=== PATIENT | female | born 1935 | race Caucasian/White ===

== ENCOUNTER 2017-03-26 22:23 | Inpatient (IN) | payer OTHER ==
[~2017-03-26] VITALS: Ht 157.5 cm; Wt 51.7 kg
[2017-03-26 22:25] VITALS: BP_SYST 110
--- NOTE | 2017-03-26 22:25 | NUR ---
Placed in room 2. Placed on monitor and storage bin tender, blood pressure machine and pulse oximeter. To gown for exam. Side rails up. Report given to Cristóbal SAUNDERS.
--- NOTE | 2017-03-26 22:40 | NUR ---
Patient to ER via EMT's for evaluation of decreased oxygen saturation, and tachycardia while at her facility. Patient denies pain/sob at present-awaiting evaluation by ER MD. Will continue to observe and assess. Patient on cardiac rn which shows heart rate of 103-105, BP stable, oxygen saturation on 2 lpm via NC is 97-99%. Will continue to observe and assess.
--- NOTE | 2017-03-26 22:44 | NUR ---
Dr Naranjo at bedside to evaluate patient.
--- NOTE | 2017-03-26 23:35 | NUR ---
Consent signed for CTA of chest. Patient resting quietly in nad, vital signs stable, respirations even and unlabored, skin warm and dry to touch. IV saline lock patent.
[2017-03-26 23:42] LABS: BASOPHILS % (AUTO) 0.5 % (0.0-2.0); EOSINOPHILS # (AUTO) 0.1 K/uL (0.0-0.4); EOSINOPHILS % (AUTO) 0.9 % (0.0-4.0); HEMATOCRIT 29.4 % (36-48); HEMOGLOBIN 9.9 g/dL (12.0-16.0); LYMPHOCYTES # (AUTO) 1.9 K/uL (1.0-5.5); MEAN CORPUSCULAR HEMOGLOBIN 33 pg (27-31); MEAN CORPUSCULAR HGB CONC 34 % (32-36); MEAN CORPUSCULAR VOLUME 98 fL (79.0-98.0); MONOCYTES # (AUTO) 0.8 K/uL (0.0-1.0); MONOCYTES % (AUTO) 8.8 % (1.7-9.3); NEUTROPHILS # (AUTO) 6.4 K/uL (1.8-7.7); NEUTROPHILS % (AUTO) 68.8 % (40.0-70.0); PLATELET COUNT (AUTO) 449 K/uL (130-430); RED BLOOD CELL COUNT(AUTO) 2.99 MIL/uL (4.2-6.2); RED CELL DISTRIBUTION WIDTH 16.1 % (9.0-15.0)
[2017-03-26 23:43] LABS: ANION GAP 9 (5-15); CALCIUM 8.7 mg/dL (8.4-11.0); CHLORIDE 102 mmol/L (98-107); GLUCOSE 119 mg/dL (70-99); SODIUM SERUM 137 mmol/L (136-145); UREA NITROGEN, BLOOD 14 mg/dL (8-21)
[2017-03-26 23:46] LABS: PROTHROMBIN TIME 10.7 SECS (9.5-12.5)
[2017-03-26 23:47] LABS: ALANINE AMINOTRANSFERASE 41 U/L (12-78); ASPARTATE AMINOTRANSFERASE 37 U/L (10-37); TOTAL BILIRUBIN 0.4 mg/dL (0.0-1.0)
[2017-03-27 00:19] LABS: WHITE BLOOD COUNT (AUTO) 9.2 K/uL (4.8-10.8)
[2017-03-27] MEDS ORDERED: IOHEXOL 350 mgI/mL, 150 ML INFUS..BTL IV ONE (00:28)
[2017-03-27] MEDS ORDERED: ASPIRIN 81 MG TAB.CHEW PO ONE (01:30)
[2017-03-27] MEDS ORDERED: ENOXAPARIN SODIUM 80 MG/0.8 ML SYRINGE SUBCUT ONE (01:30)
--- NOTE | 2017-03-27 01:43 | NUR ---
Patient does not meet SEPSIS protocol.
--- NOTE | 2017-03-27 02:01 | NUR ---
Patient will be admitted to care of Dr Mckeon. Admitted to tele in unit. Will go to room 135. Belongings list completed. Summary report printed. Report will be given at bedside.
--- NOTE | 2017-03-27 02:17 | NUR ---
Dr Naranjo at bedside speaking with patient and family regarding results and plan of care. Questions have been answered by Dr Naranjo
--- NOTE | 2017-03-27 02:20 | NUR ---
Medication reconciliation completed with information provided by Wood Hahn. Any prior medication reconciliation on file was reviewed and corrected.
--- NOTE | 2017-03-27 02:22 | NUR ---
[facility]. Licensed nurse present. IV present no signs or symptoms of infiltration.
[2017-03-27] MEDS ORDERED: POLY17PO4 PO (02:32)
[2017-03-27] MEDS ORDERED: PHEN100C4 PO (02:32)
[2017-03-27] MEDS ORDERED: FOLI-43 PO (02:32)
[2017-03-27] MEDS ORDERED: IBUP-1969 PO (02:32)
[2017-03-27] MEDS ORDERED: FERR-57 PO (02:32)
[2017-03-27] MEDS ORDERED: HYDR-1189 PO (02:32)
[2017-03-27] MEDS ORDERED: PHEN60TA11 PO (02:32)
[2017-03-27] MEDS ORDERED: ACET-2165 PO (02:32)
[2017-03-27] MEDS ORDERED: MAGN400T10 PO (02:32)
[2017-03-27] MEDS ORDERED: FAMO20TA8 PO (02:32)
[2017-03-27] MEDS ORDERED: ALEN10TA6 PO (02:32)
--- NOTE | 2017-03-27 02:35 | NUR ---
ADMISSION NOTE Received patient from ER via maurice, received report from MARY SAUNDERS. Patient admitted with diagnosis of PULMONARY EMBOLUS. Patient oriented to hospital routine, call light, toileting and safety-patient verbalized understanding.
[2017-03-27 02:46] VITALS: BP_SYST 115
[2017-03-27] MEDS ORDERED: FLU VACC QS 2017-18(36MOS+)/PF 0.5 ML/SYR SYRINGE I.M. PRN (03:00)
--- NOTE | 2017-03-27 04:06 | NUR ---
Notes: Patient asleep in bed breathing spontaneously. No respiratory distress noted, No complain of pain.
[2017-03-27] MEDS ORDERED: ALENDRONATE SODIUM 70 MG TABLET (FOSAMAX) PO SCH (06:00)
--- NOTE | 2017-03-27 06:13 | NUR ---
Notes: Patient is resting in bed. Respiration non labored. No distress noted. Seizure pads inplaced for seizure precaution. No complain of pain.
--- NOTE | 2017-03-27 07:30 | NUR ---
Initial notes: Patient on bed awake, alert and oriented. Stable. Denies pain. Call light within reach. Safety and seizure precaution in placed. Report received at bedside.
[2017-03-27 08:00] VITALS: BP_SYST 89
--- NOTE | 2017-03-27 08:13 | NUR ---
Nutrition Update Dayne Scale 15 noted. Pt admitted for Pulmonary Embolism Diet: Regular diet BMI: 20.[address] to follow per nutrition care standards.
--- NOTE | 2017-03-27 08:13 | NUR ---
PAGE CALLED FOR DR. CACERES. SPOKE TO CAROLIN, DIALED [phone].
[2017-03-27] MEDS: FAMOTIDINE 20 MG TABLET PO SCH ×2 (08:59→20:38)
[2017-03-27] MEDS: POLYETHYLENE GLYCOL 3350, 17 GM/ POWD.PACK PO SCH ×2 (08:59→20:39)
[2017-03-27] MEDS: FERROUS SULFATE 325 MG TABLET.DR PO SCH ×2 (08:59→20:38)
[2017-03-27] MEDS: MAGNESIUM OXIDE 400 MG TABLET PO SCH ×2 (08:59→20:38)
[2017-03-27] MEDS: FOLIC ACID 1 MG TABLET PO SCH (08:59)
[2017-03-27] MEDS: ENOXAPARIN SODIUM 80 MG/0.8 ML SYRINGE SUBCUT SCH ×2 (09:00→20:39)
--- NOTE | 2017-03-27 09:09 | NUR ---
round: patient on bed resting. complained of pain when she cough. Will inform Hermelinda
--- NOTE | 2017-03-27 11:11 | NUR ---
Consult: Dr. Downs Consult called to Dr. Downs's office @ and spoke with evelyne Sanchez. Dr. Armando Gibson subscription crew leader.
--- NOTE | 2017-03-27 11:58 | NUR ---
PAGE CALLED FOR DR. CACERES. SPOKE TO DRAKE, DIALED [phone].
[2017-03-27 12:00] VITALS: BP_SYST 116
--- NOTE | 2017-03-27 12:00 | NUR ---
Venous Doppler: Informed Dr. Carloz Curtis popliteal vein partial thrombus seen per tech. No new order.
--- NOTE | 2017-03-27 13:07 | NUR ---
rounds: patient assisted to bedside commode. voided. no shortness of breath.
[2017-03-27] MEDS: POTASSIUM CHLORIDE 10 MEQ in NACL 0.9% 1,000 ML IV SCH (14:00)
--- NOTE | 2017-03-27 14:09 | NUR ---
rounds: patient on bed resting. i.v. fluids started. no change in condition.
[2017-03-27 15:53] VITALS: BP_SYST 110
--- NOTE | 2017-03-27 16:30 | NUR ---
rounds: patient on the cellphone. no distress noted.
--- NOTE | 2017-03-27 18:47 | NUR ---
closing notes: patient on bed resting. Stable. Needs attended. Safety measures in placed. Call light within reach. Report will be given to night shift manager.
[2017-03-27 19:50] VITALS: BP_SYST 128
--- NOTE | 2017-03-27 19:50 | NUR ---
INITIAL NOTES PT. RECEIVED RESTING IN BED, ALERT AND ORIENTED. ABLE TO MAKE NEEDS KNOWN. VSS. DENIES PAIN. IV ACCESS TO RIGHT FOREARM PATENT AND INFUSING FLUIDS WELL ORDERED. NO SIGNS OF INFILTRATION EVIDENT. ASSISTED PT. IN USING THE BEDSIDE COMMODE. VOIDED FREELY. BACK TO BED AND IN A COMFORTABLE POSITION. PLAN OF CARE DISCUSSED, USE OF CALL LIGHT ENCOURAGED. VERBALIZES UNDERSTANDING. WILL CONT. TO MONITOR FOR ANY CHANGES. SAFETY AND FALL PRECAUTIONS IN PLACE. CALL LIGHT IN REACH.
[2017-03-27] MEDS: PHENYTOIN 100 MG CAPSULE PO SCH (20:38)
--- NOTE | 2017-03-27 22:11 | NUR ---
ROUNDS PT. RESTING IN BED WITH EYES CLOSED. CHEST RISE AND FALL NOTED. NO S/S OF SOB OR DISTRESS. NO FACIAL GRIMACING INDICATING PAIN. SATING WELL ON 2L NASAL CANNULA. PILLOW SUPPORT IN PLACE. WILL CONT. TO MONITOR FOR CHANGES. SAFETY AND FALL PRECAUTIONS IN PLACE. CALL LIGHT IN REACH.
[2017-03-28] VITALS: BP_SYST 120
[2017-03-28] MEDS: POTASSIUM CHLORIDE 10 MEQ in NACL 0.9% 1,000 ML IV SCH ×3 (00:29→19:56)
--- NOTE | 2017-03-28 00:30 | NUR ---
rounds pt. assisted to use the bedside commode. voided freely.back to bed and in a comfortable position. ivf infusing without signs of infiltration. will cont. to monitor for changes. safety, fall and seizure precautions in place, call light in reach. bed alarm on.
--- NOTE | 2017-03-28 02:16 | NUR ---
ROUNDS PT. RESTING IN BED WITH NO SIGNS OF ACUTE DISTRESS. IVF INFUSING WELL. ALL NEEDS MET AT THIS TIME. WILL CONT. TO MONITOR FOR CHANGES. SAFETY AND FALL PRECAUTIONS IN PLACE, CALL LIGHT IN REACH.
[2017-03-28 04:00] VITALS: BP_SYST 130
--- NOTE | 2017-03-28 04:00 | NUR ---
rounds pt. was assisted to use bedside commode but stated it was a false alarm. pt. did not go. assisted back to bed and in a comfortable position. 02 at 2L, ivf cont. to infuse. will cont. to monitor. call light in reach.
--- NOTE | 2017-03-28 06:33 | NUR ---
CLOSING NOTES PT. ASSISTED TO USE THE BEDSIDE COMMODE. VOIDED FREELY. BACK TO BED IN A COMFORTABLE POSITION WITH PILLOW SUPPORT PROVIDED. NO SIGNS OF ACUTE DISTRESS. IVF CONT. TO INFUSE WELL. NO SIGNS OF INFILTRATION TO IV SITE. ALL NECESSARY NEEDS WERE MET THROUGHOUT THE SHIFT. SAFETY, FALL AND SEIZURE PRECAUTIONS WERE MAINTAINED. WILL ENDORSE CARE TO AM NURSE. CALL LIGHT IN REACH, BED ALARM ON.
[2017-03-28 07:30] LABS: BASOPHILS % (AUTO) 0.7 % (0.0-2.0); EOSINOPHILS # (AUTO) 0.2 K/uL (0.0-0.4); EOSINOPHILS % (AUTO) 2.7 % (0.0-4.0); HEMATOCRIT 27.1 % (36-48); HEMOGLOBIN 9.1 g/dL (12.0-16.0); LYMPHOCYTES # (AUTO) 1.6 K/uL (1.0-5.5); LYMPHOCYTES % (AUTO) 23.5 % (20.5-51.5); MEAN CORPUSCULAR HEMOGLOBIN 33 pg (27-31); MEAN CORPUSCULAR HGB CONC 34 % (32-36); MEAN CORPUSCULAR VOLUME 99 fL (79.0-98.0); MONOCYTES # (AUTO) 0.8 K/uL (0.0-1.0); MONOCYTES % (AUTO) 11.4 % (1.7-9.3); NEUTROPHILS # (AUTO) 4.3 K/uL (1.8-7.7); NEUTROPHILS % (AUTO) 61.7 % (40.0-70.0); PLATELET COUNT (AUTO) 408 K/uL (130-430); RED BLOOD CELL COUNT(AUTO) 2.73 MIL/uL (4.2-6.2); RED CELL DISTRIBUTION WIDTH 17.2 % (9.0-15.0); WHITE BLOOD COUNT (AUTO) 6.9 K/uL (4.8-10.8)
[2017-03-28 08:00] VITALS: BP_SYST 120
[2017-03-28 08:25] LABS: ANION GAP 8 (5-15); CALCIUM 8.1 mg/dL (8.4-11.0); CHLORIDE 106 mmol/L (98-107); CREATININE 0.52 mg/dL (0.55-1.30); GLUCOSE 92 mg/dL (70-99); POTASSIUM 3.8 mmol/L (3.5-5.1); SODIUM SERUM 139 mmol/L (136-145); UREA NITROGEN, BLOOD 11 mg/dL (8-21)
[2017-03-28] MEDS: FOLIC ACID 1 MG TABLET PO SCH (09:00)
[2017-03-28] MEDS: MAGNESIUM OXIDE 400 MG TABLET PO SCH ×2 (11:49→20:26)
[2017-03-28] MEDS: FAMOTIDINE 20 MG TABLET PO SCH ×2 (11:49→20:25)
[2017-03-28] MEDS: FERROUS SULFATE 325 MG TABLET.DR PO SCH ×2 (11:49→20:25)
[2017-03-28] MEDS: POLYETHYLENE GLYCOL 3350, 17 GM/ POWD.PACK PO SCH ×2 (11:49→20:26)
[2017-03-28] MEDS: ENOXAPARIN SODIUM 80 MG/0.8 ML SYRINGE SUBCUT SCH ×2 (11:51→20:26)
[2017-03-28] MEDS ORDERED: RIVAROXABAN 15 MG TABLET PO ONE (15:30)
[2017-03-28 16:00] VITALS: BP_SYST 122
[2017-03-28] MEDS: RIVAROXABAN 15 MG TABLET PO SCH (18:00)
[2017-03-28 20:00] VITALS: BP_SYST 126
--- NOTE | 2017-03-28 20:05 | NUR ---
Initial Note Received awake, alert and oriented. No SOB noted. Denies any pain or n/v at this time. Steri strips on right hip clean and intact. No other skin issues. No peripheral edema noted. IVF infusing. Call light within reach. Bed at low position at all times. Seizure precaution observed. Sinus tachycadia on monitor. Needs attended. Kept warm and comfortable.
[2017-03-28] MEDS: PHENYTOIN 100 MG CAPSULE PO SCH (20:25)
[2017-03-28] MEDS: PHENobarbital 30 MG TABLET PO SCH (20:35)
--- NOTE | 2017-03-28 20:45 | NUR ---
RN Note Due meds given. Tolerated well. No bleeding noted at this time. Family at the bedside.
--- NOTE | 2017-03-28 21:32 | NUR ---
Pt. awake,alert,calm cooperative, call light in reach, no c/o, pt calls to be assisst to use BSC, adm meds as ordered.
--- NOTE | 2017-03-28 22:00 | NUR ---
RN Note Awake, alert and oriented. Assisted to the bedside commode. Able to stand up but slightly weak. Assisted back to bed. No complaints. Kept clean, dry and comfortable.
[2017-03-28] MEDS: HYDROcodone/ACETAMIN 5-325 MG TAB (NORCO/ VICODIN) PO PRN (23:30)
--- NOTE | 2017-03-28 23:30 | NUR ---
RN Note Complain of abdominal pain from blood thinner shots about 5/10. Medicated for pain. Will continue to monitor.
[2017-03-28 23:39] VITALS: BP_SYST 139
--- NOTE | 2017-03-29 00:10 | NUR ---
RN Note Sleeping at this time. IVF infusing. No SOB noted.
[2017-03-29] MEDS: ACETAMINOPHEN 325 MG TABLET PO PRN (01:53)
--- NOTE | 2017-03-29 02:00 | NUR ---
RN Note Awake and alert. Complain of left abdominal sharp pain. No bleeding noted. Medicated for pain. Will continue to monitor. Addendum: 03/29/17 at 0230 by Ariel Carl RN Assisted to bedside commode and back to bed. Kept comfortable.
--- NOTE | 2017-03-29 04:00 | NUR ---
RN Note Patient sleeping comfortably in bed. No signs of acute distress. Bed alarm on. IVF infusing.
[2017-03-29 04:18] VITALS: BP_SYST 119
[2017-03-29] MEDS: HYDROcodone/ACETAMIN 5-325 MG TAB (NORCO/ VICODIN) PO PRN ×3 (05:21→22:42)
[2017-03-29] MEDS: POTASSIUM CHLORIDE 10 MEQ in NACL 0.9% 1,000 ML IV SCH (05:22)
--- NOTE | 2017-03-29 06:12 | NUR ---
End Note Afebrile. Vital signs stable. No complain of SOB or n/v throughout the night. Medicated for left mild to moderate abdominal pain, tender to touch. Will endorse to AM nurse. Assisted patient to the bedside commode. IVF infusing. Right hip steri strips clean and intact. Repositioned. Needs attended. Bed alarm on and at low position at all times. Call light within reach. Kept clean, dry and comfortable. Addendum: 03/29/17 at 0626 by Ariel Carl RN No seizure episode throughout the night.
[2017-03-29 07:50] VITALS: BP_SYST 109
--- NOTE | 2017-03-29 07:50 | NUR ---
INITIAL ROUNDS Received pt AAOx4, no s/s resp distress, no c/o pain or discomfort. Plan of care for the day reviewed with pt-pt verbalized her understanding. IVF infusing well to right arm at ordered rate with no s/s infiltration to site. Note steri-strips to right hip area in 2 places with no s/s infection to site. Pain management, disease process, skin and safety discussed-teach back done. Side rails up x3 for safety, bed alarm on, pt encouraged to call nursing for assist out bed for safety-pt verbalized her understanding. Contact phone number explained, call light within reach.
[2017-03-29] MEDS: RIVAROXABAN 15 MG TABLET PO SCH ×2 (09:47→17:58)
[2017-03-29] MEDS: FOLIC ACID 1 MG TABLET PO SCH (09:48)
[2017-03-29] MEDS: FAMOTIDINE 20 MG TABLET PO SCH ×2 (09:48→22:41)
[2017-03-29] MEDS: MAGNESIUM OXIDE 400 MG TABLET PO SCH ×2 (09:48→22:43)
[2017-03-29] MEDS: FERROUS SULFATE 325 MG TABLET.DR PO SCH ×2 (09:48→22:43)
[2017-03-29] MEDS: POLYETHYLENE GLYCOL 3350, 17 GM/ POWD.PACK PO SCH ×2 (09:54→22:41)
--- NOTE | 2017-03-29 10:30 | NUR ---
ROUNDS Pt sitting up in bedside chair with no c/o pain or discomfort. Pt just ambulated with physical therapy. Needs met. Call light within reach.
[2017-03-29 12:00] VITALS: BP_SYST 110
--- NOTE | 2017-03-29 12:45 | NUR ---
ROUNDS/PAIN No s/s seizure activity. Pt c/o pain to her left abd-pt given [place] as ordered. Cold pack placed to left abd for comfort. Needs met, call light within reach.
--- NOTE | 2017-03-29 13:30 | NUR ---
MD VISIT/TELE DC'D pt seen by Dr. Mckeon, informed him of pt's left abd-MD stated to continue to apply cold packs PRN. MD discussed with pt-she verbalized her understanding. Pt's at bedside. Call light within reach.
--- NOTE | 2017-03-29 14:09 | NUR ---
DISCHARGE PLANNING DC planning back to [facility] tomorrow. Faxed SNF referral to [phone]. Will follow up. Addendum: 03/29/17 at 1441 by Barb Arriaga DP Spoke with Hermelinda in admitting at [facility] patient accepted back. Hermelinda requested DCP to call in AM for bed assignment.
--- NOTE | 2017-03-29 16:00 | NUR ---
ROUNDS Pt with no s/s resp distress, no c/o pain or discomfort. SAO2 96% on room air. Pt assisted to bedside commode, pt voided. Pt c/o tenderness to lef t abd-pt given fresh cold pack for abd. Pt repositioned for comfort and skin care. Lotion applied to right hip area per pt request. Needs met, all precautions remain in place, call light within reach.
[2017-03-29 16:12] VITALS: BP_SYST 114
--- NOTE | 2017-03-29 16:15 | NUR ---
PHYSICAL THERAPY CO-SIGN The Physical Therapy Progress Notes documented by Blacking Machine Operator have been reviewed. Reviewed/Co-Signed by: Alexus Llamas, PT Documentation Done by: Lyly Feldman PTA I concur with the documentation of this DRUG REGULATORY AFFAIRS SPECIALIST. Plan: we'll continue PT as per plan of care if she remains in this hospital. Addendum: 03/30/17 at 8151 by Alexus Llamas PT Amended: Links added.
--- NOTE | 2017-03-29 18:55 | NUR ---
CLOSING NOTE Pt sitting up in bed visiting with her , no s/s resp distress, no c/o pain or discomfort. No s/s seizure activity. Needs met, call light within reach.
[2017-03-29 20:00] VITALS: BP_SYST 118
--- NOTE | 2017-03-29 20:00 | NUR ---
pt is awake,alert and oriented x4. pleasant. no acute resp. distress. 02 at room air with saturation of 98%. wound to the right hip dry with present steri strips. pt's spouse at bedside. vital signs stable. no c/o pain at this time. a slight bruising noted to left abd area where pt stated received the anticoagulant injections causing her a hematoma. pt noted to be applying ice to the area. no medication for pain at this time.
[2017-03-29] MEDS: PHENobarbital 30 MG TABLET PO SCH (22:43)
[2017-03-29] MEDS: PHENYTOIN 100 MG CAPSULE PO SCH (23:57)
[2017-03-30] VITALS (7 sets, daily range): BP systolic 107–141
--- NOTE | 2017-03-30 00:41 | NUR ---
Notes Received patient lying in bed resting quietly, no s/s of any pain, no acute distress noted. IV site checked intact and patent on saline lock. Call light within reach. will monitor patient.
--- NOTE | 2017-03-30 02:17 | NUR ---
Rounds Patient resting quietly, bed alarm on, call light within reach.
--- NOTE | 2017-03-30 04:00 | NUR ---
Rounds Patient resting quietly, bed alarm on, call light within reach.
--- NOTE | 2017-03-30 06:35 | NUR ---
Closing notes Patient slept most of the night, no other changes noted on patient current condition.
--- NOTE | 2017-03-30 07:50 | NUR ---
Initial Note Received pt in bed, no s/s of distress or sob noted, pt has no c/o pain at this time, pt in stable condition, pt aaox4, verbal, fall risk. IV catheter patent, no signs of infection or infiltration noted. Bed at lowest position, call light within reach, will continue to monitor pt for any changes. Noted that pt has a hematoma on abd, bowel sounds present in all four quadrants, tender.
[2017-03-30 07:55] LABS: BASOPHILS # (AUTO) 0.1 K/uL (0.0-0.2); BASOPHILS % (AUTO) 0.5 % (0.0-2.0); EOSINOPHILS % (AUTO) 0.4 % (0.0-4.0); HEMOGLOBIN 8.7 g/dL (12.0-16.0); LYMPHOCYTES # (AUTO) 1.1 K/uL (1.0-5.5); LYMPHOCYTES % (AUTO) 9.9 % (20.5-51.5); MEAN CORPUSCULAR HEMOGLOBIN 34 pg (27-31); MEAN CORPUSCULAR HGB CONC 34 % (32-36); MEAN CORPUSCULAR VOLUME 100 fL (79.0-98.0); MONOCYTES % (AUTO) 9.1 % (1.7-9.3); PLATELET COUNT (AUTO) 439 K/uL (130-430); RED BLOOD CELL COUNT(AUTO) 2.59 MIL/uL (4.2-6.2); WHITE BLOOD COUNT (AUTO) 11.2 K/uL (4.8-10.8)
[2017-03-30 07:58] LABS: ANION GAP 9 (5-15); CALCIUM 8.8 mg/dL (8.4-11.0); CHLORIDE 103 mmol/L (98-107); CREATININE 0.57 mg/dL (0.55-1.30); GLUCOSE 114 mg/dL (70-99); POTASSIUM 4.3 mmol/L (3.5-5.1); SODIUM SERUM 139 mmol/L (136-145); UREA NITROGEN, BLOOD 8 mg/dL (8-21)
[2017-03-30] MEDS: FOLIC ACID 1 MG TABLET PO SCH (09:09)
[2017-03-30] MEDS: POLYETHYLENE GLYCOL 3350, 17 GM/ POWD.PACK PO SCH ×2 (09:09→21:07)
[2017-03-30] MEDS: FAMOTIDINE 20 MG TABLET PO SCH ×2 (09:09→21:03)
[2017-03-30] MEDS: RIVAROXABAN 15 MG TABLET PO SCH ×2 (09:09→17:17)
[2017-03-30] MEDS: MAGNESIUM OXIDE 400 MG TABLET PO SCH ×2 (09:09→21:02)
[2017-03-30] MEDS: FERROUS SULFATE 325 MG TABLET.DR PO SCH ×2 (09:09→21:03)
--- NOTE | 2017-03-30 10:10 | NUR ---
DISCHARGE PLANNING Spoke with Verna in admitting at [facility] patient assigned to room 209A RN to report [phone] bed available anytime. Called patient Uvaldo Senior [phone] left voice message requesting return call back. Any ambulance can be arranged. Placed transportation packet in nurse station.
--- NOTE | 2017-03-30 10:25 | NUR ---
ROUNDS PT IN BED, NO S/S OF DISTRESS OR SOB NOTED, PT HAS NO C/O PAIN AT THIS TIME, PT IN STABLE CONDITION, PT RESTING COMFORTABLY, WILL CONTINUE TO MONITOR PT FOR ANY CHANGES.
[2017-03-30 11:52] LABS: NEUTROPHILS % (AUTO) 80.1 % (40.0-70.0)
--- NOTE | 2017-03-30 13:25 | NUR ---
ROUNDS Dr Linda roebrtson, aware of patients condition, per md patient will be transferred tomorrow due to hematoma on abd changing in size, new orders written. Charge nurse aware.
[2017-03-30 13:51] LABS: BASOPHILS # (AUTO) 0.1 K/uL (0.0-0.2); BASOPHILS % (AUTO) 0.8 % (0.0-2.0); EOSINOPHILS % (AUTO) 0.2 % (0.0-4.0); HEMATOCRIT 26.6 % (36-48); HEMOGLOBIN 8.8 g/dL (12.0-16.0); LYMPHOCYTES # (AUTO) 1.5 K/uL (1.0-5.5); LYMPHOCYTES % (AUTO) 10.5 % (20.5-51.5); MEAN CORPUSCULAR HEMOGLOBIN 33 pg (27-31); MEAN CORPUSCULAR HGB CONC 33 % (32-36); MEAN CORPUSCULAR VOLUME 100 fL (79.0-98.0); MONOCYTES # (AUTO) 1.1 K/uL (0.0-1.0); MONOCYTES % (AUTO) 7.9 % (1.7-9.3); NEUTROPHILS # (AUTO) 11.5 K/uL (1.8-7.7); NEUTROPHILS % (AUTO) 80.6 % (40.0-70.0); PLATELET COUNT (AUTO) 444 K/uL (130-430); RED BLOOD CELL COUNT(AUTO) 2.66 MIL/uL (4.2-6.2); RED CELL DISTRIBUTION WIDTH 17.4 % (9.0-15.0); WHITE BLOOD COUNT (AUTO) 14.2 K/uL (4.8-10.8)
--- NOTE | 2017-03-30 15:07 | NUR ---
PHYSICAL THERAPY CO-SIGN The Physical Therapy Progress Notes documented by Manager Cash have been reviewed. Reviewed/Co-Signed by: Alexus Llamas, PT Documentation Done by: Lyly Feldman PTA I concur with the documentation of this HOME WEATHERIZING WORKER. Patient is making good and steady progress with PT. Plan: cont PT as per POC Addendum: 03/30/17 at 1508 by Alexus Llamas PT Amended: Links added.
--- NOTE | 2017-03-30 19:57 | NUR ---
INITIAL ROUNDS Received report from dayshift. Pt awake and alert in no distress. Abd binder in place. IV20g SL to R FA in place. Assisted pt on bedside commode and collected UA to send to lab. Call bagley within reach. Encouraged pt to use call bagley as needed. Verbalized understanding.
[2017-03-30] MEDS: PHENobarbital 30 MG TABLET PO SCH (21:02)
[2017-03-30] MEDS: PHENYTOIN 100 MG CAPSULE PO SCH (21:03)
[2017-03-30] MEDS: ACETAMINOPHEN 325 MG TABLET PO PRN (21:04)
[2017-03-30 21:28] LABS: BILIRUBIN,URINE NEGATIVE (NEGATIVE); BLOOD, URINE 1+ (NEGATIVE); CLARITY/URINE HAZY (CLEAR); COLOR,URINE YELLOW (YELLOW); GLUCOSE,URINE NEGATIVE (NEGATIVE); KETONES,URINE NEGATIVE (NEGATIVE); LEUKOCYTE ESTERASE ,URINE 1+ (NEGATIVE); NITRITE, URINE POSITIVE (NEGATIVE); PH,URINE 7.5 (5.0-8.0); PROTEIN URINE TRACE (NEGATIVE); UROBILINOGEN,URINE 0.2 (0.2-1.0)
[2017-03-30 22:01] LABS: BACTERIA,URINE MANY /HPF (None Seen); MUCUS,URINE None Seen /LPF (None Seen); RBC,URINE 0-3 /HPF (0-3); WBC,URINE >100 /HPF (0-3)
--- NOTE | 2017-03-30 22:20 | NUR ---
ROUNDS Repeat temp check 100.0 temporal. Pts heartrate continues elevated at 113. Pt denies any urinary symptoms. Dry cough present. No respiratory distress. Lung sounds diminished. Jewel sinha MD.
--- NOTE | 2017-03-30 23:11 | NUR ---
CALL BACK FROM DR. FERNANDEZ Per Dr. Fernandez orders Rocephin 1gm IV daily, Levaquin 1gm IV daily, NS 100mls/hr and Lactic Acid x 1 in AM. Will update orders.
--- NOTE | 2017-03-30 23:37 | NUR ---
ROUNDS/LAB AT BEDSIDE Lab at bedside drawing lactic acid. Explained to pt plan of care and need for blood work, IV fluids and antibiotics. Pt verbalized understanding.
[2017-03-30] MEDS ORDERED: cefTRIAXone 1 GM in D5W 50 ML IV ONE (23:45)
[2017-03-31] MEDS ORDERED: cefTRIAXone 1 GM IVPB PREMIX 50 ML IV ONE (00:25)
[2017-03-31 00:28] VITALS: BP_SYST 104
--- NOTE | 2017-03-31 00:40 | NUR ---
ROUNDS/IV FLUID/ABX Started IV fluids on pt to R FA 20g flushed well. NS at 100mls per hour started along with Rocephin 1gm IVPB. Will continue to monitor.
[2017-03-31] MEDS: NACL 0.9% 1,000 ML IV SCH ×2 (00:49→14:33)
--- NOTE | 2017-03-31 01:20 | NUR ---
ROUNDS Rocephin IV abx completed. Pt tolerated well no sign/symptoms of adverse reaction. Started levaquin 750mg IVP over 90min. IV running well. Will continue to monitor.
--- NOTE | 2017-03-31 03:45 | NUR ---
ROUNDS IV Levaquin completed. IV fluids resumed. Pt tolerated levaquin well. No signs/symptoms of adverse reaction. Seizure precautions in place, bed alarm set and call bagley within reach. Encouraged pt to use call bagley for assistance. Verbalized understanding.
[2017-03-31 04:43] VITALS: BP_SYST 112
--- NOTE | 2017-03-31 04:47 | NUR ---
ROUNDS Pts vital signs stable. HR 102, afebrile at 98.3. IV running well at 100mls of NS. Will continue to monitor.
--- NOTE | 2017-03-31 06:20 | NUR ---
CLOSING NOTE Pt awake and alert in no distress. IV running NS 100mls well. Updated pt on current lab results. Reviewed plan of care. Will continue to monitor and endorse pt care to dayshift.
[2017-03-31 07:35] LABS: BASOPHILS % (AUTO) 0.2 % (0.0-2.0); EOSINOPHILS % (AUTO) 0.3 % (0.0-4.0); HEMATOCRIT 25.8 % (36-48); HEMOGLOBIN 8.6 g/dL (12.0-16.0); LYMPHOCYTES # (AUTO) 0.9 K/uL (1.0-5.5); LYMPHOCYTES % (AUTO) 5.4 % (20.5-51.5); MEAN CORPUSCULAR HEMOGLOBIN 34 pg (27-31); MEAN CORPUSCULAR HGB CONC 33 % (32-36); MEAN CORPUSCULAR VOLUME 102 fL (79.0-98.0); MONOCYTES # (AUTO) 1.2 K/uL (0.0-1.0); MONOCYTES % (AUTO) 7.2 % (1.7-9.3); NEUTROPHILS % (AUTO) 86.9 % (40.0-70.0); PLATELET COUNT (AUTO) 411 K/uL (130-430); RED BLOOD CELL COUNT(AUTO) 2.54 MIL/uL (4.2-6.2); RED CELL DISTRIBUTION WIDTH 18.1 % (9.0-15.0); WHITE BLOOD COUNT (AUTO) 16.1 K/uL (4.8-10.8)
[2017-03-31 07:45] LABS: ANION GAP 10 (5-15); CALCIUM 8.1 mg/dL (8.4-11.0); CHLORIDE 102 mmol/L (98-107); CREATININE 0.46 mg/dL (0.55-1.30); GLUCOSE 118 mg/dL (70-99); POTASSIUM 3.9 mmol/L (3.5-5.1); SODIUM SERUM 135 mmol/L (136-145); UREA NITROGEN, BLOOD 7 mg/dL (8-21)
[2017-03-31 07:56] VITALS: BP_SYST 123
--- NOTE | 2017-03-31 08:00 | NUR ---
NOTE PT SITTING UP IN BED EATING HER BREAKFAST. NO SOB/RESP DISTRESS OR PAIN/DISCOMFORT NOTED. IV IN RIGHT HAND INTACT AND PATENT AT THIS TIME. PT HAS HER ABDOMINAL BINDER AT THIS TIME. PT ABLE TO TURN AND MOVE IN BED INDEPENDENTLY. CALL LIGHT WITHIN REACH.
[2017-03-31] MEDS: MAGNESIUM OXIDE 400 MG TABLET PO SCH ×2 (08:39→20:45)
[2017-03-31] MEDS: FAMOTIDINE 20 MG TABLET PO SCH ×2 (08:39→20:45)
[2017-03-31] MEDS: FERROUS SULFATE 325 MG TABLET.DR PO SCH ×2 (08:39→20:45)
[2017-03-31] MEDS: FOLIC ACID 1 MG TABLET PO SCH (08:39)
[2017-03-31] MEDS: POLYETHYLENE GLYCOL 3350, 17 GM/ POWD.PACK PO SCH ×2 (08:39→20:44)
[2017-03-31] MEDS: RIVAROXABAN 15 MG TABLET PO SCH ×2 (08:49→17:06)
--- NOTE | 2017-03-31 09:50 | NUR ---
note PT WAS UP AND AMBULATING WITH PHYSICAL THERAPY AND NOW SITTING UP IN BS CHAIR AT THIS TIME. NO PAIN/DISCOMFORT OR SOB/RESP DISTRESS NOTED. CALL LIGHT WITHIN REACH. NO NEEDS NOTED.
--- NOTE | 2017-03-31 10:51 | NUR ---
DISCHARGE PLANNING Spoke with Verna in admitting at [facility] patient assigned to room 209A RN to report [phone] bed available anytime. Any ambulance can be arranged. Updated transportation packet in nurse station. Pending discharge order.
[2017-03-31 11:27] VITALS: BP_SYST 124
--- NOTE | 2017-03-31 12:40 | NUR ---
NOTE DR FERNANDEZ ON THE FLOOR - ASSESSMENT OF PT COMPLETED. PT TO POSSIBLY BE DISCHARGE TO SNF TOMORROW DUE TO HIGH WBC TODAY. DR CRUZ TO NE CONSULTED FOR INFECTION ANTIBIOTICS. PT SITTING UP IN BED EATING HER LUNCH. IVF'S INFUSING THROUGH RIGHT HAND IV SITE. PT DENIES ANY NEEDS AT THIS TIME. CALL LIGHT WITHIN REACH.
--- NOTE | 2017-03-31 13:15 | NUR ---
PHYSICAL THERAPY CO-SIGN The Physical Therapy Progress Notes documented by Farm[employer] have been reviewed. Reviewed/Co-Signed by: Alexus Llamas PT Documentation Done by: Tre Calle PTA I concur with the documentation of this REAGENT TENDER HELPER. Plan: continue as per plan of care. Addendum: 03/31/17 at 1345 by Alexus Llamas PT Amended: Links added.
[2017-03-31] MEDS: CHOLECALCIFEROL (VITAMIN D3) 2,000 UNIT TABLET PO SCH (13:30)
[2017-03-31] MEDS: MULTIVITAMINS TAB 1 TABLET PO SCH ×2 (13:30→20:45)
[2017-03-31] MEDS: DOCUSATE SODIUM 250 MG CAPSULE PO SCH ×2 (13:45→20:46)
--- NOTE | 2017-03-31 13:56 | NUR ---
CONSULT ID SEPSIS DR DICKSON [phone] S/W LORRIE MUNOZ @ [id number]
[2017-03-31] MEDS ORDERED: CYANOCOBALAMIN 1000 mCg TABLET PO ONE (14:00)
[2017-03-31] MEDS ORDERED: CHOLECALCIFEROL (VITAMIN D3) 2,000 UNIT TABLET PO ONE (14:00)
[2017-03-31] MEDS ORDERED: DOCUSATE SODIUM 250 MG CAPSULE PO ONE (14:00)
[2017-03-31] MEDS ORDERED: MULTIVITAMINS TAB 1 TABLET PO ONE (14:00)
[2017-03-31 14:04] LABS: TOTAL IRON BIND. CAPACITY 157 ug/dL (250-450)
--- NOTE | 2017-03-31 14:55 | NUR ---
NOTE PT RESTING IN BED, HAS 2 FRIENDS AT BEDSIDE VISITING AT THIS TIME. NO NEEDS NOTED AT THIS TIME. IVF'S INFUSING WELL THROUGH RIGHT HAND IV SITE. CALL LIGHT WITHIN REACH.
[2017-03-31 15:26] VITALS: BP_SYST 121
--- NOTE | 2017-03-31 15:40 | NUR ---
NOTE PT MOVED VIA BED FROM ROOM 111A TO 109A.
[2017-03-31] MEDS: ACETAMINOPHEN 325 MG TABLET PO PRN (16:17)
--- NOTE | 2017-03-31 16:35 | NUR ---
NOTE RESTING IN BED - DENIES ANY NEEDS AT THIS TIME. IVF'S INFUSING WELL THROUGH RIGHT HAND IV SITE. HAS VISITOR AT BEDSIDE. NO NEEDS NOTED. CALL LIGHT WITHIN REACH.
[2017-03-31 17:18] LABS: PHENOBARBITAL 8.6 ug/mL (15.0-40.0)
--- NOTE | 2017-03-31 18:10 | NUR ---
NOTE PT SITTING UP IN BED EATING HER YOGURT AND JUICES, STATES THAT IS ALL SHE CAN TOLERATE ALL DAY. PT ONLY ATE YOGURT AND JUICES FOR ALL 3 MEALS TODAY. PT STATED SHE HAD NO APPETITE FOR ANYTHING ELSE TODAY. NO SOB/RESP DISTRESS OR PAIN/DISCOMFORT NOTED AT THIS TIME. PT'S IVF'S INFUSING WELL THROUGH RIGHT HAND IV SITE. PT ENCOURAGED TO TAKE DEEP BREATHS 10X Q1' WHILE AWAKE. NO NEEDS NOTED AT THIS TIME. PT WAS MAINTAINED WITH SAFETY PRECAUTIONS ALL SHIFT. PT STABLE AT THIS TIME. CALL LIGHT WITHIN REACH.
[2017-03-31 19:10] VITALS: BP_SYST 120
--- NOTE | 2017-03-31 19:10 | NUR ---
Initial Notes Received patient in bed, awake alert oriented x3 with at bedside. No s/s of any distress noted. IV noted to R f/a g20, no infiltrate and with good blood return. BUE are strong and mild weakness noted to BLE, needs assistance to bedside commode. Discussed plan of care with patient and verbalized understanding. Call light in reach, will cont to monitor.
[2017-03-31] MEDS: PHENYTOIN 100 MG CAPSULE PO SCH (20:44)
[2017-03-31] MEDS: PHENobarbital 30 MG TABLET PO SCH (20:45)
[2017-03-31] MEDS ORDERED: cefTRIAXone 1 GM in D5W 50 ML IV SCH (21:00)
--- NOTE | 2017-03-31 21:10 | NUR ---
Rounds Patient is resting at this time. Requested to keep the door slightly close. Call light in reach, will cont to monitor.
--- NOTE | 2017-03-31 23:10 | NUR ---
Rounds Patient is resting at this time. No s/s pain of any distress noted. Assisted to reposition in bed. Call light in , will cont to monitor.
[2017-04-01] VITALS (8 sets, daily range): BP systolic 106–134
--- NOTE | 2017-04-01 01:10 | NUR ---
Rounds Patient is resting at this time. No s/s pain of any distress noted. Assisted to commode and safely back to bed. Call light in reach , will cont to monitor.
--- NOTE | 2017-04-01 03:10 | NUR ---
Rounds Patient is resting at this time. No s/s pain of any distress noted. Assisted to reposition in bed. Call light in reach , will cont to monitor.
--- NOTE | 2017-04-01 06:50 | NUR ---
Final Rounds Patient is resting in bed at this time. No s/s of any distress noted. All needs met and anticipated by noc nurses. Call light in reach, will endorsed.
[2017-04-01 07:26] LABS: BASOPHILS % (AUTO) 0.3 % (0.0-2.0); EOSINOPHILS % (AUTO) 0.3 % (0.0-4.0); HEMATOCRIT 25.4 % (36-48); HEMOGLOBIN 8.4 g/dL (12.0-16.0); LYMPHOCYTES # (AUTO) 1.3 K/uL (1.0-5.5); LYMPHOCYTES % (AUTO) 10.2 % (20.5-51.5); MEAN CORPUSCULAR HEMOGLOBIN 34 pg (27-31); MEAN CORPUSCULAR HGB CONC 33 % (32-36); MEAN CORPUSCULAR VOLUME 102 fL (79.0-98.0); MONOCYTES % (AUTO) 7.8 % (1.7-9.3); NEUTROPHILS # (AUTO) 10.8 K/uL (1.8-7.7); NEUTROPHILS % (AUTO) 81.4 % (40.0-70.0); PLATELET COUNT (AUTO) 453 K/uL (130-430); RED CELL DISTRIBUTION WIDTH 17.5 % (9.0-15.0); WHITE BLOOD COUNT (AUTO) 13.1 K/uL (4.8-10.8)
[2017-04-01 07:57] LABS: ALANINE AMINOTRANSFERASE 47 U/L (12-78); ALBUMIN 2.4 g/dL (3.4-4.8); ANION GAP 8 (5-15); ASPARTATE AMINOTRANSFERASE 40 U/L (10-37); CALCIUM 8.3 mg/dL (8.4-11.0); CHLORIDE 104 mmol/L (98-107); CREATININE 0.52 mg/dL (0.55-1.30); GLUCOSE 114 mg/dL (70-99); POTASSIUM 3.6 mmol/L (3.5-5.1); SODIUM SERUM 137 mmol/L (136-145); TOTAL BILIRUBIN 0.4 mg/dL (0.0-1.0); UREA NITROGEN, BLOOD 5 mg/dL (8-21)
--- NOTE | 2017-04-01 08:00 | NUR ---
initial notes rec patient awake alert with hob elevated. ivf infusing well on the r forearm. no infiltration noted. hob elevated and resp easy and unlabored. no acute distress noted. incision on the r hip with steri strip dry and intact. toes moving freely and warm to touch. bed in low position and side rails up and locked. call light within reached and knows when to call for assistance. fall/safety precaution instructed.
[2017-04-01] MEDS: FERROUS SULFATE 325 MG TABLET.DR PO SCH ×2 (08:58→21:56)
[2017-04-01] MEDS: MAGNESIUM OXIDE 400 MG TABLET PO SCH ×2 (08:58→21:57)
[2017-04-01] MEDS: MULTIVITAMINS TAB 1 TABLET PO SCH ×2 (08:58→21:57)
[2017-04-01] MEDS: FOLIC ACID 1 MG TABLET PO SCH (08:58)
[2017-04-01] MEDS: CYANOCOBALAMIN 1000 mCg TABLET PO SCH (08:58)
[2017-04-01] MEDS: FAMOTIDINE 20 MG TABLET PO SCH ×2 (08:58→21:56)
[2017-04-01] MEDS: RIVAROXABAN 15 MG TABLET PO SCH ×2 (08:58→18:17)
[2017-04-01] MEDS: DOCUSATE SODIUM 250 MG CAPSULE PO SCH ×2 (09:00→21:57)
[2017-04-01] MEDS: POLYETHYLENE GLYCOL 3350, 17 GM/ POWD.PACK PO SCH ×2 (09:00→21:00)
--- NOTE | 2017-04-01 10:00 | NUR ---
rounds up and walk w ith p.t on the hallway with walker and dee well. call light within reached.
[2017-04-01] MEDS: ACETAMINOPHEN 325 MG TABLET PO PRN (10:24)
[2017-04-01] MEDS: NACL 0.9% 1,000 ML IV SCH ×3 (10:28→21:59)
[2017-04-01] MEDS: CHOLECALCIFEROL (VITAMIN D3) 2,000 UNIT TABLET PO SCH (11:48)
--- NOTE | 2017-04-01 11:51 | NUR ---
seen by blanka and ordered new abx for patient. reported too re above 100 temp. awaiting for abx to come.
[2017-04-01] MEDS: PIPERACILLIN/TAZO 2.25G/DEX-IS 50 ML IV SCH ×2 (14:13→18:21)
--- NOTE | 2017-04-01 15:07 | NUR ---
Dietitian Recommendations * Recommend continuing regular, mechanical soft diet per MD * Encourage increased PO intake LP, RD Please refer to Nutrition Assessment for details.
--- NOTE | 2017-04-01 16:00 | NUR ---
rounds sleeps at intervals, resting quietly. no acute distress noted.
--- NOTE | 2017-04-01 18:30 | NUR ---
closing notes due abx was given. call light within reached and constantly call and use the commode to void and dee well. turned repositioned when pt in back in bed. no sob noted. stable, needs attended.
--- NOTE | 2017-04-01 20:00 | NUR ---
INITIAL NOTES PT. RECEIVED RESTING IN BED, ALERT AND ORIENTED. ABLE TO MAKE NEEDS KNOWN. VSS. DENIES PAIN AT THIS TIME. IS AT THE BEDSIDE. PT. EDUCATED ON USE OF INCENTIVE SPIROMETER, RETURNS DEMONSTRATION. ENCOURAGED TO USE TEN TIEMS HOURLY WHILE AWAKE. IV NOTED TO RFA, #20, INFUSING IVF WELL ORDERED WITHOUT SIGNS OF INFILTRATION. SIDE RAILS ARE PADDED FOR SEIZURE SAFETY. PLAN OF CARE DISCUSSED, USE OF CALL LIGHT ENCOURAGED. WILL CONT. TO MONITOR FOR CHANGES. SAFETY AND FALL PRECAUTIONS IN PLACE. CALL LIGHT IN REACH.
[2017-04-01] MEDS: PHENobarbital 30 MG TABLET PO SCH (21:56)
[2017-04-01] MEDS: PHENYTOIN 100 MG CAPSULE PO SCH (22:03)
--- NOTE | 2017-04-01 22:05 | NUR ---
ROUNDS PT. RESTING IN BED, NO SIGNS OF ACUTE DISTRESS. STATES SHE WOULD LIKE THE LIGHT OFF TO GO TO SLEEP. WILL TURN OFF AND CONTINUE TO MONITOR. IVF CONT TO INFUSE WELL, IV REMAINS PATENT AND WITHOUT SIGNS OF INFILTRATION. SAFETY, FALL AND SEIZURE PRECAUTIONS IN PLACE, CALL LIGHT IN REACH.
[2017-04-02] MEDS: PIPERACILLIN/TAZO 2.25G/DEX-IS 50 ML IV SCH ×4 (00:24→17:27)
--- NOTE | 2017-04-02 00:43 | NUR ---
ROUNDS PT. SLEEPING, EASILY AROUSES. NO SIGNS OF ACUTE DISTRESS. NO COMPLAINTS OF PAIN. IV ABX INFUSING WELL WITH NO ADVERSE REACTIONS NOTED. ALL NEEDS MET AT THIS TIME. WILL CONT. TO MONITOR FOR CHANGES. SAFETY, FALL AND SEIZURE PRECAUTIONS IN PLACE. CALL LIGHT IN REACH.
--- NOTE | 2017-04-02 02:40 | NUR ---
ROUNDS PT. SLEEPING. CHEST RISE AND FALL NOTED. NO S/S OF DISTRESS. NO FACIAL GRIMACING INDICATING PAIN. WILL CONT. TO MONITOR. CALL LIGHT IN REACH.
[2017-04-02 03:40] VITALS: BP_SYST 126
--- NOTE | 2017-04-02 04:17 | NUR ---
ROUNDS PT. RESTING IN BED WITH EYES CLOSED. CHEST RISE AND FALL NOTED. NO SIGNS OF ACUTE DISTRESS. NO FACIAL GRIMACING INDICATING PAIN. WILL CONT. TO MONITOR. CALL LIGHT IN REACH.
--- NOTE | 2017-04-02 06:40 | NUR ---
CLOSING NOTES PT. RESTING IN BED WITH EYES CLOSED. CHEST RISE AND FALL NOTED. NO S/S OF SOB OR DISTRESS. NO FACIAL GRIMACING FOR PAIN. NO SEIZURE ACTIVITY NOTED THIS SHIFT. ALL NEEDS WERE MET. SAFETY AND FALL PRECAUTIONS WERE MAINTAINED. IV REMAINS PATENT. WILL ENDORSE CARE TO AM NURSE. CALL LIGHT IN REACH.
[2017-04-02 06:50] LABS: BASOPHILS # (AUTO) 0.1 K/uL (0.0-0.2); BASOPHILS % (AUTO) 0.5 % (0.0-2.0); EOSINOPHILS # (AUTO) 0.1 K/uL (0.0-0.4); EOSINOPHILS % (AUTO) 0.8 % (0.0-4.0); HEMATOCRIT 24.6 % (36-48); HEMOGLOBIN 8.2 g/dL (12.0-16.0); LYMPHOCYTES # (AUTO) 1.3 K/uL (1.0-5.5); LYMPHOCYTES % (AUTO) 12.6 % (20.5-51.5); MEAN CORPUSCULAR HEMOGLOBIN 34 pg (27-31); MEAN CORPUSCULAR HGB CONC 33 % (32-36); MEAN CORPUSCULAR VOLUME 101 fL (79.0-98.0); MONOCYTES # (AUTO) 0.9 K/uL (0.0-1.0); MONOCYTES % (AUTO) 8.9 % (1.7-9.3); NEUTROPHILS % (AUTO) 77.2 % (40.0-70.0); PLATELET COUNT (AUTO) 485 K/uL (130-430); RED BLOOD CELL COUNT(AUTO) 2.43 MIL/uL (4.2-6.2); RED CELL DISTRIBUTION WIDTH 17.4 % (9.0-15.0); WHITE BLOOD COUNT (AUTO) 10.4 K/uL (4.8-10.8)
[2017-04-02 07:05] LABS: ANION GAP 8 (5-15); CALCIUM 8.4 mg/dL (8.4-11.0); CHLORIDE 104 mmol/L (98-107); GLUCOSE 104 mg/dL (70-99); POTASSIUM 3.9 mmol/L (3.5-5.1); SODIUM SERUM 137 mmol/L (136-145); UREA NITROGEN, BLOOD 5 mg/dL (8-21)
[2017-04-02 08:00] VITALS: BP_SYST 137
--- NOTE | 2017-04-02 08:00 | NUR ---
Opening Note Report received from Savana SAUNDERS. Patient is resting in bed. IV is on the RFA 20g running NS@100. Patient is using IS. Abdominal binder is in place. Patient has a right hip dressing. Will continue to monitor.
[2017-04-02] MEDS: POLYETHYLENE GLYCOL 3350, 17 GM/ POWD.PACK PO SCH ×3 (09:00→20:49)
[2017-04-02] MEDS: FAMOTIDINE 20 MG TABLET PO SCH ×2 (09:47→20:41)
[2017-04-02] MEDS: FERROUS SULFATE 325 MG TABLET.DR PO SCH ×2 (09:47→20:40)
[2017-04-02] MEDS: RIVAROXABAN 15 MG TABLET PO SCH ×2 (09:47→17:26)
[2017-04-02] MEDS: MAGNESIUM OXIDE 400 MG TABLET PO SCH ×2 (09:47→20:40)
[2017-04-02] MEDS: CYANOCOBALAMIN 1000 mCg TABLET PO SCH (09:47)
[2017-04-02] MEDS: CHOLECALCIFEROL (VITAMIN D3) 2,000 UNIT TABLET PO SCH (09:47)
[2017-04-02] MEDS: DOCUSATE SODIUM 250 MG CAPSULE PO SCH ×2 (09:47→20:40)
[2017-04-02] MEDS: MULTIVITAMINS TAB 1 TABLET PO SCH ×2 (09:47→20:40)
[2017-04-02] MEDS: FOLIC ACID 1 MG TABLET PO SCH (09:47)
[2017-04-02] MEDS: ACETAMINOPHEN 325 MG TABLET PO PRN (09:48)
[2017-04-02] MEDS: NACL 0.9% 1,000 ML IV SCH (09:53)
--- NOTE | 2017-04-02 10:02 | NUR ---
Rounds Patient ambulated with physical therapy.
--- NOTE | 2017-04-02 12:03 | NUR ---
Rounds Patient is resting in bed. Call light is within reach. Bed is in low position.
[2017-04-02 12:10] VITALS: BP_SYST 115
--- NOTE | 2017-04-02 13:32 | NUR ---
DC Planning: F/u with pt. regarding her decision whether to go back to [facility] when discharge. Pt. spoke with Verna liaison from [facility] and voice her concerns about nursing care at the snf. There will be some adjustment to accommodate the pt. needs per Verna. The pt. agreed returning back to [facility] if not dc to home. Addendum: 04/02/17 at 1513 by Barb Arriaga DP DC order back to [facility]. Spoke with Verna at [facility] patient assigned to room 104B RN to report [phone] Called [facility] [phone] spoke with [facility] BLS transport on will call. CHIP Ahmadi made aware. Transport packet placed in nurses station.
--- NOTE | 2017-04-02 14:03 | NUR ---
PHYSICAL THERAPY CO-SIGN The Physical Therapy Progress Notes documented by Decorating Inspector have been reviewed. Reviewed/Co-Signed by: Gisela Krause PT Documentation Done by:SASKIA LOPEZ PTA I CONCUR WITH THE DOCUMENTATION COMPLETED BY THE ABOVE VEGETABLE WORKER Addendum: 04/02/17 at 1404 by Gisela Krause PT Amended: Links added.
--- NOTE | 2017-04-02 14:30 | NUR ---
Rounds Assisted the patient to the commode and back into bed.
[2017-04-02 16:25] LABS: BASOPHILS # (AUTO) 0.1 K/uL (0.0-0.2); BASOPHILS % (AUTO) 0.7 % (0.0-2.0); EOSINOPHILS # (AUTO) 0.1 K/uL (0.0-0.4); EOSINOPHILS % (AUTO) 1.1 % (0.0-4.0); HEMATOCRIT 25.4 % (36-48); HEMOGLOBIN 8.5 g/dL (12.0-16.0); LYMPHOCYTES # (AUTO) 1.4 K/uL (1.0-5.5); LYMPHOCYTES % (AUTO) 14.5 % (20.5-51.5); MEAN CORPUSCULAR HEMOGLOBIN 34 pg (27-31); MEAN CORPUSCULAR HGB CONC 33 % (32-36); MEAN CORPUSCULAR VOLUME 101 fL (79.0-98.0); MONOCYTES # (AUTO) 1.1 K/uL (0.0-1.0); MONOCYTES % (AUTO) 11.6 % (1.7-9.3); NEUTROPHILS # (AUTO) 7.1 K/uL (1.8-7.7); NEUTROPHILS % (AUTO) 72.1 % (40.0-70.0); PLATELET COUNT (AUTO) 517 K/uL (130-430); RED BLOOD CELL COUNT(AUTO) 2.51 MIL/uL (4.2-6.2); WHITE BLOOD COUNT (AUTO) 9.8 K/uL (4.8-10.8)
--- NOTE | 2017-04-02 16:40 | NUR ---
MD Rounds Dr. Mckeon stated that the patient may be dc'd to SNF if stool for OB is negative. MD wants to be called with the results.
[2017-04-02 18:04] VITALS: BP_SYST 122
--- NOTE | 2017-04-02 18:15 | NUR ---
Closing Note Patient is resting in bed. No signs of distress noted throughout the shift. call light is within reach and bed is in low position. Discharge is pending until stool for OB is collected. Will endorse care to the oncoming nurse.
[2017-04-02 20:00] VITALS: BP_SYST 126
--- NOTE | 2017-04-02 20:00 | NUR ---
INITIAL NOTES PT. RECEIVED RESTING IN BED, ALERT AND ORIENTED. ABLE TO MAKE NEEDS KNOWN. VSS. DENIES PAIN AT THIS TIME. IS AT THE BEDSIDE. PT. EDUCATED ON USE OF INCENTIVE SPIROMETER, RETURNS DEMONSTRATION OF 500 CC. ENCOURAGED TO USE TEN TIMES HOURLY WHILE AWAKE. IV NOTED TO RIGHT UPPER ARM, #22,SALINE LOCK. FLUSHES WELL. ABDOMINAL BINDER NOTED, TO BE IN PLACE AT ALL TIMES. HEMATOMA PRESENT. SIDE RAILS ARE PADDED FOR SEIZURE SAFETY. PLAN OF CARE DISCUSSED, USE OF CALL LIGHT ENCOURAGED. WILL CONT. TO MONITOR FOR CHANGES. SAFETY AND FALL PRECAUTIONS IN PLACE. CALL LIGHT IN REACH.
[2017-04-02] MEDS: PHENobarbital 30 MG TABLET PO SCH (20:40)
[2017-04-02] MEDS: PHENYTOIN 100 MG CAPSULE PO SCH (20:40)
--- NOTE | 2017-04-02 22:28 | NUR ---
ROUNDS PT. RESTING IN BED WITH EYES CLOSED. CHEST RISE AND FALL NOTED. NO SIGNS OF ACUTE DISTRESS OR SOB. NO FACIAL GRIMACING INDICATING PAIN. WILL CONT. TO MONITOR. CALL LIGHT IN REACH.
[2017-04-02 23:31] VITALS: BP_SYST 140
[2017-04-03] MEDS: PIPERACILLIN/TAZO 2.25G/DEX-IS 50 ML IV SCH ×3 (00:10→11:58)
--- NOTE | 2017-04-03 00:13 | NUR ---
ROUNDS PT. SLEEPING BUT EASILY AROUSES. NO SIGNS OF ACUTE DISTRESS. DENIES PAIN OR DISCOMFORT. IV ABX INFUSING WELL ORDERED. NO ADVERSE REACTIONS NOTED. ALL NEEDS MET AT THIS TIME. WILL CONT. TO MONITOR FOR CHANGES. SAFETY AND FALL PRECAUTIONS IN PLACE. CALL LIGHT IN REACH. BED ALARM ON.
--- NOTE | 2017-04-03 02:07 | NUR ---
ROUNDS PT. RESTING WITH EYES CLOSED. CHEST RISE AND FALL NOTED. NO S/S OF SOB OR DISTRESS. NO FACIAL GRIMACING FOR PAIN. IV PATENT. WILL CONT. TO MONITOR. CALL LIGHT WITHIN THE PT. REACH. SIDE RAILS PADDED FOR SAFETY.
[2017-04-03 03:00] VITALS: BP_SYST 122
--- NOTE | 2017-04-03 04:33 | NUR ---
ROUNDS PT. RESTING IN BED, NO SIGNS OF ACUTE DISTRESS. WILL CONT. TO MONITOR. CALL LIGHT IN REACH.
--- NOTE | 2017-04-03 06:48 | NUR ---
CLOSING NOTES PT ASSISTED TO USE BED SIDE COMMODE. INSTRUCTED PT TO CALL WHEN FINISHED. VERBALIZES UNDERSTANDING. ALL NEEDS WERE MET. SAFETY AND FALL PRECAUTIONS WERE MAINTAINED. NO SEIZURE ACTIVITY NOTED THIS SHIFT. IV REMAINS PATENT. WILL ENDORSE CARE TO AM NURSE. CALL LIGHT IN REACH.
[2017-04-03 08:00] VITALS: BP_SYST 125
--- NOTE | 2017-04-03 08:00 | NUR ---
PATIENT IS EATING BREAKFAST, A/OX4. IV ON RIGHT UPPER ARM, #22, SL. BR, BUT AMBULATES WITH PT. POC IS UPDATED. CALL LIGHT IN PLACE, BED LOCKED AT THE LOWEST POSITION, WILL CONTINUE TO MONITOR.
--- NOTE | 2017-04-03 09:39 | NUR ---
PAGED PAGED JOEL KIMBLE AT [phone] SPOKE WITH MELA.
[2017-04-03] MEDS: ACETAMINOPHEN 325 MG TABLET PO PRN (09:48)
[2017-04-03] MEDS: CHOLECALCIFEROL (VITAMIN D3) 2,000 UNIT TABLET PO SCH (09:48)
[2017-04-03] MEDS: RIVAROXABAN 15 MG TABLET PO SCH (09:48)
[2017-04-03] MEDS: MULTIVITAMINS TAB 1 TABLET PO SCH (09:49)
[2017-04-03] MEDS: DOCUSATE SODIUM 250 MG CAPSULE PO SCH (09:49)
[2017-04-03] MEDS: FOLIC ACID 1 MG TABLET PO SCH (09:49)
[2017-04-03] MEDS: CYANOCOBALAMIN 1000 mCg TABLET PO SCH (09:49)
[2017-04-03] MEDS: FAMOTIDINE 20 MG TABLET PO SCH (09:49)
[2017-04-03] MEDS: MAGNESIUM OXIDE 400 MG TABLET PO SCH (09:49)
[2017-04-03] MEDS: FERROUS SULFATE 325 MG TABLET.DR PO SCH (09:49)
[2017-04-03 10:06] LABS: HEMOGLOBIN 9.9 g/dL (12.0-16.0)
[2017-04-03 10:14] LABS: NEUTROPHILS % (AUTO) 75.3 % (40.0-70.0)
[2017-04-03 10:15] LABS: BASOPHILS % (AUTO) 0.5 % (0.0-2.0); EOSINOPHILS # (AUTO) 0.2 K/uL (0.0-0.4); EOSINOPHILS % (AUTO) 1.6 % (0.0-4.0); LYMPHOCYTES # (AUTO) 1.3 K/uL (1.0-5.5); LYMPHOCYTES % (AUTO) 13.4 % (20.5-51.5); MONOCYTES # (AUTO) 0.9 K/uL (0.0-1.0); MONOCYTES % (AUTO) 9.2 % (1.7-9.3); NEUTROPHILS # (AUTO) 7.5 K/uL (1.8-7.7); PLATELET COUNT (AUTO) 627 K/uL (130-430)
[2017-04-03 10:16] LABS: MEAN CORPUSCULAR HEMOGLOBIN 33 pg (27-31); MEAN CORPUSCULAR HGB CONC 33 % (32-36); MEAN CORPUSCULAR VOLUME 100 fL (79.0-98.0); RED CELL DISTRIBUTION WIDTH 16.8 % (9.0-15.0); WHITE BLOOD COUNT (AUTO) 9.9 K/uL (4.8-10.8)
--- NOTE | 2017-04-03 12:25 | NUR ---
DC PLANNING: ARRANGED BLS TRANSPORTATION W/ [facility] TEL# [phone], LABELING ASSOCIATE TIME IS 1600, PT WILL BE GOING TO [facility] TEL# [phone] ROOM# 104 B. PT IS AGREEABLE TO THE DC PLAN. PACKET AT THE NURSE'S STATION, NOTIFIED DHARA.
[2017-04-03 12:29] VITALS: BP_SYST 113
--- NOTE | 2017-04-03 12:59 | NUR ---
PHYSICAL THERAPY CO-SIGN The Physical Therapy Progress Notes documented by Manager Acquisition have been reviewed. Reviewed/Co-Signed by: Isis Chavarria PT Documentation Done by: DORIS WALTON TANK FARM ATTENDANT PT HAS MET REHAB GOALS SET FOR ACUTE SETTING, POSSIBLE DC TO SNF TODAY PER [facility], WILL DC PT FROM [facility]. WILL BENEFIT FROM REHAB IN SNF. Addendum: 04/03/17 at 1300 by Isis Chavarria PT Amended: Links added.
[2017-04-03 13:54] VITALS: BP_SYST 113
--- NOTE | 2017-04-03 15:00 | NUR ---
PATIENT IS RESTING, NO SIGNS OF DISTRESS NOTED.
--- NOTE | 2017-04-03 16:30 | NUR ---
PT TRANSFERRED Report given to BABAR randhawa [facility]. Transfer packet with Transfer Orders and Medication Reconciliation form given to EMT with report. Exitcare provided. [facility] ID band removed, replaced with ID band with pt's name and . IV catheter kept for abx. All belongings sent with patient. Patient left floor via gurney escorted by EMT in no distress.
[2017-04-03 16:31] VITALS: BP_SYST 130
== END 2017-04-03 16:30 | DRG 871 ==
LOC: SED 22:23 → SMU 03-27 02:02 → STU 03-27 02:22 → SMU 03-29 13:34
PROVIDERS: ADMIT Internal Medicine; ATTEND Family Medicine
DX: A41.9 Sepsis, unspecified organism (principal); I26.99 Other pulmonary embolism without acute cor pulmonale; E44.0 Moderate protein-calorie malnutrition; I82.412 Acute embolism and thrombosis of left femoral vein; N39.0 Urinary tract infection, site not specified; I82.432 Acute embolism and thrombosis of left popliteal vein; D62 Acute posthemorrhagic anemia; G40.909 Epilepsy, unspecified, not intractable, without status epilepticus; M81.0 Age-related osteoporosis without current pathological fracture; N28.9 Disorder of kidney and ureter, unspecified; R09.02 Hypoxemia; R50.82 Postprocedural fever; M25.551 Pain in right hip; M79.81 Nontraumatic hematoma of soft tissue; F41.9 Anxiety disorder, unspecified; B96.20 Unspecified Escherichia coli [E. coli] as the cause of diseases classified elsewhere; Z68.20 Body mass index [BMI] 20.0-20.9, adult
CPT/HCPCS: 36415; 71010; 71275; 76536-TC; 80048; 80053; 80184-TC; 80185-TC; 81000-TC; 82272; 83540-TC; 83550-TC; 83605; 84484; 85025; 85610-TC; 85730-TC; 87081; 87086; 87186-TC; 93005; 93306; 93970; 94010; 94760; 97110-GP; 97116-GP; 97530-GP; 99285; J0696; J1650; J1956; J2543; J3480; J7030; J7060; Q2037; Q9967